=== PATIENT | male | born 1950 | race Caucasian/White ===

== ENCOUNTER 2024-09-25 05:15 | Emergency (ER) | payer MEDICARE, OTHER, SELFPAY ==
[2024-09-25] VITALS (8 sets, daily range): BP systolic 125–155; BP diastolic 63–84; PULSE 70–87; RESP 17; TEMP 36.4; O2SAT 95–100
--- NOTE | 2024-09-25 05:29 | ED_ITS ---
HPI - Back Pain/Injury General Chief Complaint: Back Pain/Injury Stated Complaint: Kidney stone Time Seen by Provider: 09/25/24 05:19 History of Present Illness HPI Narrative: 74-year-old male with a past medical history of hypertension hyperlipidemia type 2 diabetes on metformin, chronic low back pain with a history of spinal fusion in February of 2024 presenting for exacerbation of his low back. States that it is similar to his history of low back pain states it is to his left buttock radiating down the left leg, patient denies any numbness weakness tingling to lower extremities, denies any saddle paresthesias denies any urinary or bowel incontinence or retention. Patient was able to stand bear weight ambulate unassisted here in the emergency department. Patient states that he was doing a lot of walking yesterday was having a sore back but due to persistent symptoms decided come into the ED for further evaluation treatment. Patient denies any trauma or falls not on any blood thinners Related Data Previous Rx's ?Medication ?Instructions ?Recorded diazepam 2 mg tablet (Valium) 2 mg PO BEDTIME PRN musc le spasm 5 09/25/24 days #5 tabs Allergies Allergy/AdvReac Type Severity Reaction Status Date / Time No Known Drug Allergies Allergy Verified 09/25/24 05:33 Review of Systems Review of Systems Narrative: General: Denies fever, chills, weight loss HEENT: Denies headache, eye drainage, eye irritation, head trauma, sore throat, voice change Cardiovascular: Denies any chest pain, palpitations, tachycardia Respiratory: Denies any shortness of breath, cough, wheeze, stridor GI/: Denies any abdominal pain, nausea, vomiting, diarrhea, bright red blood per rectum, melanotic stools, urinary frequency, urinary retention, dysuria, hematuria MSK: Positive left-sided low back pain Skin: Denies any rashes, lesions, discoloration Neuro: Denies any headache, lightheadedness, dizziness, fainting, weakness Psych: Denies SI/HI Exam Narrative Exam Narrative: General: Cooperative, well-developed, not in acute distress HEENT: Normocephalic, atraumatic, PERRLA, normal sclera, eyelids normal Neck: Active full range of motion, atraumatic Chest: Normal to inspection, negative crepitus, no overlying erythema ecchymosis Respiratory: Normal respiratory effort, not in acute respiratory distress, clear to auscultation bilaterally negative cough, wheeze, tachypnea, rhonchi, rales Cardiology: Regular rate rhythm negative gallop, murmur, rubs GI/: No tenderness to palpation, soft, non rigid, normal to inspection, exam deferred, negative CVA tenderness MSK: Full active range of motion in all 4 extremities, atraumatic, no tenderness to palpation of any bony prominences, reproducible tenderness to palpation within the gluteal region of the left lower extremity, patient is able to stand bear weight ambulate unassisted here in the emergency department neurovascularly intact bilateral lower extremities Skin: No rashes or lesions noted Neuro: Alert awake oriented x3, moves all 4 extremities spontaneously, cranial nerves intact, able to answer all questions appropriately follows commands appropriately Psych: Cooperative, negative suicidal or homicidal ideations Initial Vital Signs Initial Vital Signs: Vital Signs Temperature 97.5 F L 09/25/24 05:33 Pulse Rate 87 09/25/24 05:33 Respiratory Rate 17 09/25/24 05:33 Blood Pressure 152/84 H 09/25/24 05:33 Pulse Oximetry 100 09/25/24 05:33 Oxygen Delivery Method Room Air 09/25/24 05:33 Course Orders Ordered: ED Orders 09/25/24 05:23 Urinalysis and Microscopic Stat 09/25/24 05:29 CT lumbar spine wo con Stat Discontinued Medications Diazepam (Diazepam 5 Mg Tablet) 5 mg PO NOW ONE Stop: 09/25/24 05:30 Last Admin: 09/25/24 06:05 Dose: 5 mg Documented By: LINDA Ketorolac Tromethamine (Ketorolac 30 Mg/Ml Vial) 30 mg IM NOW ONE Stop: 09/25/24 05:30 Last Admin: 09/25/24 06:05 Dose: 30 mg Documented By: LINDA Lidocaine (Lidocaine 5% Patch) 1 each TOP NOW ONE Stop: 09/25/24 05:30 Last Admin: 09/25/24 06:05 Dose: 1 each Documented By: LINDA Vital Signs Vital signs: Vital Signs - 8 hr 09/25/24 05:33 Temperature 97.5 F L Pulse Rate 87 Respiratory Rate 17 Blood Pressure 152/84 H Pulse Oximetry 100 Oxygen Delivery Method Room Air MDM - Back Pain/Injury Differential Diagnosis Differential diagnosis: Likely lumbar radiculopathy, sciatica, strain of lumbar region, pyelonephritis and other (Urinary tract infections) Lab Data Labs: Lab Results 09/25/24 Range/Units 05:23 Urine Color Yellow Urine Appearance Clear Urine pH 6.0 (4.5-8.0) Ur Specific [place] 1.025 (1.000-1.035) Urine Protein Trace H (Negative) Urine Glucose (UA) 3+ H (Negative) g/dL Urine Ketones Trace H (NEGATIVE) Urine Occult Blood Negative (Negative) Urine Nitrate Negative (Negative) Urine Bilirubin Negative (NEGATIVE) Urine Urobilinogen 1.0 (0.2) E.U./dL Ur Leukocyte Esterase Negative (NEGATIVE) Urine RBC None seen (0-5/HPF) Urine WBC 0-1/hpf (0-5/HPF) Ur Squamous Epith Cells 0-1 /hpf (0-5/HPF) Urine Bacteria Occasional (0-1) (None) Ur Culture Indicated? Cult not indicated Vol Urine Centrifuged 10ml (spun) Imaging Data CT lumbar: Radiologist's Impression: Preliminary read showing impression: 1. Status post L3-S1 spinal instrumentation, nondisplaced fractures with sclerotic margins of the bilateral S1 pedicles near screws likely chronic,, prominent lucency at the bone and pedicle screw interface of S1 bilaterally is concerning for hardware loosening. Recommending orthopedic or neurosurgical consultation. 2. 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 3. Nonobstructing bilateral nephrolithiasis MDM Narrative Medical decision making narrative: 74-year-old male with a past medical history of hypertension hyperlipidemia diabetes on metformin chronic low back pain status post spinal fusion in February of 2024 patient states this was done in [place], comes into the ED from home for evaluation of exacerbation low back pain, states it is the same as went he normally has low back pain, had a sore back yesterday denies any trauma and or falls, states that the pain persisted, achy in nature radiating to the back of his left butt and the back of his left leg, patient without any red flags for cauda equina symptoms, able to stand bear weight ambulate unassisted here in the emergency department. Patient had imaging and urinalysis performed here in the emergency department. Urinalysis without any red blood cells or signs of infection therefore low likelihood of nephrolithiasis and/or pyelonephritis. CT scan showing nondisplaced fractures within the sclerotic margins of the bilateral S1 pedicles near screws most likely chronic, prominent lucency of the bone and pedicle screw at S1 bilaterally concerning for hardware loosening, given CT scan reading of this we will reach out to spine versus neurosurgery for further evaluation consultation recommendation. 0633: Patient was re-evaluated, he was sleeping soundly in bed, was able to be aroused, patient stating he has had significant improvement of the symptoms after administration medication here, I did discuss CT scan findings with the patient and at bedside, did inform them that there is a possibility of hardware loosening and need for discussion with Orthopedic spine and or Neurosurgery for further evaluation recommendations and treatments. They verb alized understanding of this, agreeable with waiting for consultation with specialty care. 0643: discussed case with [facility], states will reach out to spine shortly 0700: Discussed case with Dr. Lauren, spine surgeon at [facility], he reviewed the images and states that there is nothing emergent or urgent in regards to the CT scan, does recommend patient follow up with his surgeon. 0705: Informed patient and significant other at bedside in regards to my discussion with the orthopedic spine surgeon, they feel comfortable being discharged home with outpatient follow up, patient will be discharged home with symptomatic relief, instructed to follow up with their surgeon in outpatient setting strict return precautions given verbalized understanding of this and agrees to being discharged home with outpatient follow up Discharge Plan Departure Patient Disposition: Home Clinical Impression: Acute low back pain with sciatica Activity Restrictions/Additional Instructions: Your CT scan today showed possible loosening of the spine screws, there was no need for any emergent or urgent interventions however it is recommended that you contact your orthopedic spine surgeon and if you have any worsening symptoms to go to your nearest Emergency Department. Please read the discharge instructions sheet carefully and bring all papers to all doctor follow-up visits, as it may contain information that your doctor may want to see. Disease processes change and evolve, if your symptoms worsen or if you develop any new symptoms that are concerning to you please return for evaluation. Your evaluation today does not show any evidence of any life- threatening/serious illnesses requiring admission to the hospital or surgery. Please follow-up with your doctor for re-evaluation in approximately 1 day. Seek immediate medical attention for any worrisome symptoms. *If you do not have a primary care provider please contact the [facility] Resource line at [phone]. They will ask some questions about your medical history and help get you set up with a doctor in the community. Prescriptions: New diazepam [Valium] 2 mg tablet 2 mg PO BEDTIME PRN (Reason: muscle spasm) 5 Days Qty: 5 0RF Referrals: Santo Lauren, [Non-Staff, Orthopedic Surgery] Stand Alone Forms: Patient Portal/API
--- NOTE | 2024-09-25 05:29 | DI.CT.S_ITS ---
PROCEDURE: CT LUMBAR SPINE WO CON INDICATIONS: left sided low back pain, hx of spinal fusion TECHNIQUE: Noncontrast 3 mm thick sections acquired from the T12 level to the sacrum. Sagittal and coronal reformats were constructed. For radiation dose reduction, the following was used: automated exposure control. COMPARISON: None. FINDINGS: Image quality: Excellent. Bones: Postsurgical changes from laminectomies and posterior fixation at L4 through S1. Bilateral pedicle screws and interbody rods are present. There is mild lucency surrounding the right L3 pedicle screw and the bilateral S1 pedicle screws that could indicate loosening. No hardware fracture is seen. Possible linear lucencies at the bases at the S1 pedicles bilaterally Normal osseous alignment. No acute vertebral body compression fracture. Bridging syndesmophytes are seen at the lower thoracic and upper lumbar spine when there is ossification of the supraspinous ligament. Multiple facet joints also appear fused. There is partial ankylosis of the sacroiliac joints. No suspicious lytic or blastic bony lesions. No pars defects. T12-L1: No significant spinal canal stenosis or neural foraminal narrowing. L1-L2: No significant spinal canal stenosis or neural foraminal narrowing. L2-L3: Mild circumferential disc bulging as well as moderate facet hypertrophy and buckling of the ligamentum flavum. Findings result in mild narrowing of the spinal canal and mild bilateral neural foraminal narrowing. L3-L4: Mild circumferential disc bulging as well as moderate facet hypertrophy and buckling of the ligamentum flavum. Findings result in mild narrowing of the spinal canal and mild bilateral neural foraminal narrowing. L4-L5: Status post laminectomy with decompression of the spinal canal. [id number] neural foraminal narrowing bilaterally, slightly worse on the right. L5-S1: Status post laminectomy with decompression of the spinal canal. Moderate to severe bilateral neural foraminal narrowing, worse on the left than on the right. Soft tissues: No retroperitoneal masses or hematomas. Moderate aortic atherosclerotic calcifications without aneurysmal dilatation. Bilateral nonobstructing renal calculi. IMPRESSION: 1. Postsurgical changes at L4 through S1. Linear lucency and surrounding sclerosis at the base of the S1 pedicles could represent nondisplaced fractures of uncertain age. Mild lucency surrounding the bilateral S1 pedicle screws and the right L4 pedicle screw could indicate loosening. 2. Multilevel degenerative disc disease and facet hypertrophy as described in the body of the report. No high-grade spinal canal stenosis. 3. Multilevel bridging syndesmophytes and partial ankylosis of the sacroiliac joints, suspicious for underlying ankylosing spondylitis. 4. Multiple small nonobstructing renal calculi. There is no significant discrepancy when compared to the overnight preliminary report. Approved by: Kayode Cline M.D. on 09/25/2024 at 8:49
[2024-09-25 05:32] LABS: Appearance Urine UA CLEAR; Bilirubin Urine UA NEGATIVE (NEGATIVE); Color Urine UA YELLOW; Glucose Urine UA 3+ g/dL (Negative); Ketones Urine UA TRACE (NEGATIVE); Leukocyte Esterase Urine UA NEGATIVE (NEGATIVE); Nitrite Urine UA NEGATIVE (Negative); Occult Blood Urine UA NEGATIVE (Negative); Protein Urine UA TRACE (Negative); Specific Gravity Urine UA 1.025 (1.000-1.035); Urobilinogen Urine UA 1.0 E.U./dL (0.2); pH Urine UA 6.0 (4.5-8.0)
[2024-09-25 05:46] LABS: Culture Indicated Urine Cult Not Indicated
[2024-09-25] MEDS: KETOROLAC 30 MG/ML VIAL IM (06:05)
[2024-09-25] MEDS: LIDOCAINE 5% PATCH 1 EACH TOP (06:05)
== END 2024-09-25 07:50 | disposition home or self-care (01) ==
PROVIDERS: Emergency Provider Student in an Organized Health Care Education/Training Program
DX: M54.42 Lumbago with sciatica, left side (principal)
CPT/HCPCS: 72131; 81001; 96372; 99284; J1885

== ENCOUNTER 2024-09-28 06:50 | Emergency (ER) | payer MEDICARE, OTHER, SELFPAY ==
[2024-09-28 07:00] VITALS: BP 161/85; PULSE 77; RESP 18; TEMP 35.7; O2SAT 98
[2024-09-28] MEDS: KETOROLAC 30 MG/ML VIAL 60 MG IM (09:54)
--- NOTE | 2024-09-28 10:40 | ED_ITS ---
HPI - Back Pain/Injury General Chief Complaint: Back Pain/Injury Stated Complaint: Back Pain, Screws in back coming out Time Seen by Provider: 09/28/24 06:57 Source: patient History of Present Illness HPI Narrative: 74-year-old man with a history of chronic back pain with sciatica comes to the ER because of exacerbation of his back pain. He was seen for the same complaint in our facility a few days ago. At that time he had a CT which revealed a apparent loose screw in his spinal hardware. He denies any new numbness tingling or weakness of any part of his body. He denies loss of bowel or bladder control. He denies saddle anesthesia. He has no other concerns or complaints at this time. He just wants to receive some pain medication and muscle relaxer so he is able to tolerate his flight home to [place] later today. Related Data Previous Rx's ?Medication ?Instructions ?Recorded diazepam 2 mg tablet (Valium) 2 mg PO BEDTIME PRN musc le spasm 5 09/25/24 days #5 tabs Allergies Allergy/AdvReac Type Severity Reaction Status Date / Time No Known Drug Allergies Allergy Verified 09/28/24 07:00 Patient History tobacco type: smokeless tobacco Exam Initial Vital Signs Initial Vital Signs: Vital Signs Temperature 96.2 F L 09/28/24 07:00 Pulse Rate 77 09/28/24 07:00 Respiratory Rate 18 09/28/24 07:00 Blood Pressure 161/85 H 09/28/24 07:00 Pulse Oximetry 98 09/28/24 07:00 Oxygen Delivery Method Room Air 09/28/24 07:00 Const General: in distress [facility] Head: normal to inspection, normocephalic and atraumatic Eyes General: Yes appearance normal, both eyes and all related structures Resp Effort & Inspection: normal respiratory effort Auscultation: clear to auscultation bilaterally Cardio Rate: regular rate Rhythm: regular rhythm Heart Sounds: S1 normal and S2 normal GI Palpation: soft and No tender Auscultation: normal bowel sounds Back/Spine/Pelvis Other: +SLR bilaterally Course Course Course Narrative: Patient seen and examined by myself. He was given IM Toradol and IM Valium and his pain dramatically improved and he was able to rest and sleep which he has not been able to do for the past couple of days. Since he had a good response to the medication he felt comfortable with discharge and to go home. He already has a follow up appointment scheduled with his orthopedist to discuss the possible loose hardware in his spine which was discovered on the previous CT scan here. I advised the patient to go to the nearest ER immediately if he develops any new numbness tingling or weakness in his lower extremities, saddle anesthesia, or loss of bowel or bladder control. Patient was in agreement with this plan. Orders Ordered: Discontinued Medications Diazepam (Diazepam 10 Mg/2 Ml Syringe) 10 mg IM NOW ONE Stop: 09/28/24 09:29 Last Admin: 09/28/24 09:55 Dose: 10 mg Documented By: Ketorolac Tromethamine (Ketorolac 30 Mg/Ml Vial) 60 mg IM NOW ONE Stop: 09/28/24 09:29 Last Admin: 09/28/24 09:54 Dose: 60 mg Documented By: Vital Signs Vital signs: Vital Signs - 8 hr 09/28/24 07:00 Temperature 96.2 F L Pulse Rate 77 Respiratory Rate 18 Blood Pressure 161/85 H Pulse Oximetry 98 Oxygen Delivery Method Room Air MDM - Back Pain/Injury Differential Diagnosis Differential diagnosis: Likely lumbar radiculopathy, sciatica, strain of lumbar region, pyelonephritis and thoracic back pain Discharge Plan Departure Patient Disposition: Home Clinical Impression: Acute low back pain with sciatica Instructions: DI for Sciatica Activity Restrictions/Additional Instructions: If there is any change or worsening in her condition such as worsening or [id number] pain, new numbness tingling or weakness of any part of your body, or loss of bowel or bladder control then please call 911 or go to the nearest ER immediately. Otherwise, follow up with your PCP and your orthopedic surgeon as soon as possible. Prescriptions: No Action diazepam [Valium] 2 mg tablet 2 mg PO BEDTIME PRN (Reason: muscle spasm) 5 Days Qty: 5 0RF Stand Alone Forms: Patient Portal/API
[2024-09-28 10:51] VITALS: BP 150/80; PULSE 81; RESP 16; O2SAT 96
== END 2024-09-28 10:52 | disposition home or self-care (01) ==
PROVIDERS: Emergency Provider Emergency Medicine
DX: M54.40 Lumbago with sciatica, unspecified side (principal)
CPT/HCPCS: 96372; 99283; J1885; J3360